=== PATIENT | male | born 1980 | race Caucasian/White ===

== ENCOUNTER → 2024-08-10 | Outpatient (CLI) | payer BC ==
--- NOTE | 2024-08-11 07:39 | XR ---
EXAMINATION TYPE: XR chest 2V DATE OF EXAM: 08/10/2024 5:58 PM COMPARISON: None CLINICAL INDICATION: Male, 44 years old with history of ACUTE UPPER RESPIRATORY INFECTION, UNSPECIFIE D, persistent cough, TECHNIQUE: Frontal and lateral views FINDINGS: The heart is normal size. Aorta and pulmonary vasculature within normal limits. Mild hyperinflation. No consolidation or pleural effusion. IMPRESSION: Mild hyperinflation may relate to depth of inspiration or underlying emphysema. Clinically correlate. Otherwise, no definite acute process. [facility], , 08/11/2024 7:37 AM
== END | disposition home or self-care (01) ==
LOC: RADXRMAIN 17:34
PROVIDERS: ATTEND Internal Medicine
DX: J06.9 Acute upper respiratory infection, unspecified (principal)
CPT/HCPCS: 71046